=== PATIENT | female | born 1985 | race Two or more races ===

== ENCOUNTER → 2016-07-30 | Outpatient (CLI) | payer OTHER ==
--- NOTE | ~2016-07-30 | US98 ---
[facility] A Service of [facility] RADIOLOGY TEXT RESULTS PATIENT: HEBERT YODER LOCATION: [facility] : 89 UNIT #: [id number] AGE: [address]: CANDACE Kebede APRN SEX: F ORDER DR: [id number] [facility] [address] [place], [place] [address] [id number] O MR#: [id number] Acc #: [id number] NAME: HEBERT YODER : 1985 SEX: F STUDY DATE/TIME: 07/30/2016 11:03 UNIT: [facility] ROOM: STUDY DESCRIPTION: US Pelvic Non-OB Complete Attending Physician: Candace Kebede Ordering Physician: Candace Madison Aprn Primary Care Physician: Candace Kebede MEDICAL IMAGING REPORT This report is preliminary unless electronic signature is present EXAM Pelvic ultrasound INDICATIONS Pelvic pain and dysmenorrhea for the past month. PROCEDURE Louis-scale, Doppler imaging of the pelvis via transabdominal and transvaginal approach. COMPARISON: None FINDINGS Uterus anteverted measures 7.2 x 4.8 x 5.4 cm. Uterus is retroverted on transvaginal images. The endometrium is not well seen. There is a 1.1 cm fibroid in the posterior uterine body and a 1.7 cm fibroid at the fundus. Endometrium is better seen on later images and it is thin measuring approximately 1 mm in thickness. The left ovary measures 1.7 x 2.5 x 3.9 cm. A small amount of fluid. Left adnexa. The right ovary measures 1.2 x 1.7 x 4.2 cm. IMPRESSION Small amount of fluid in the left adnexa. Otherwise negative pelvic ultrasound. Dictated by... Jose Luis Manzanares M.D. THIS IS AN ELECTRONICALLY VERIFIED REPORT Jose Luis Manzanares M.D. at 08/01/2016 6:52 AM EED/cmm [facility] A Service of [facility] RADIOLOGY TEXT RESULTS PATIENT: HEBERT YODER LOCATION: [facility] : 89 UNIT #: [id number] AGE: [address]: CANDACE Kebede APRN SEX: F ORDER DR: TD: 07/31/2016 10:11 JOB #: [id number] MEDICAL IMAGING REPORT Page 1 of 1 COPY
== END | disposition home or self-care (01) ==
LOC: CWCC 10:48
DX: N94.4 Primary dysmenorrhea (principal)
CPT/HCPCS: 76830; 76856